=== PATIENT | male | born 2000 | race African-American/Black ===

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

== ENCOUNTER 2022-04-11 18:05 | Emergency (ER) | payer MEDICAID ==
[~2022-04-11] VITALS: Ht 175.3 cm; Wt 70.0 kg
[~2022-04-11 18:05] MED LIST: CEPH500C PO; NAPR500T31 PO
[2022-04-11 18:56] VITALS: BP 131/79
[2022-04-11] MEDS ORDERED: TRAM-300 PO (22:37)
[2022-04-11] MEDS ORDERED: traMADol HCL 50 MG TAB PO ONE (22:45)
== END 2022-04-11 23:34 | disposition home or self-care (01) ==
LOC: ER 18:05 → EDBD 18:05 → ER 23:32
DX: S46.912A Strain of unspecified muscle, fascia and tendon at shoulder and upper arm level, left arm, initial encounter (principal); W22.8XXA Striking against or struck by other objects, initial encounter; Y93.89 Activity, other specified; Y92.89 Other specified places as the place of occurrence of the external cause; Y99.8 Other external cause status
CPT/HCPCS: 73030

== ENCOUNTER 2023-08-25 07:03 | Emergency (ER) | payer MEDICAID ==
[~2023-08-25] VITALS: Ht 172.7 cm; Wt 75.0 kg
[~2023-08-25 07:03] MED LIST changes: +NAPR-746 PO; -NAPR500T31 PO; +TRAM-300 PO
[2023-08-25 07:28] VITALS: BP 135/76; PULSE 120; RESP 18; O2SAT 96
[2023-08-25 07:44] VITALS: TEMP 98.8
[2023-08-25] MEDS: ACETAMINOPHEN 500 MG TAB PO ONE (07:44)
[2023-08-25 08:20] LABS: Rapid Influenza A Negative (Negative); Rapid Influenza B Negative (Negative)
[2023-08-25 08:21] LABS: COVID19 ANTIGEN SOFIA FIA NEGATIVE (NEGATIVE)
[2023-08-25] MEDS ORDERED: AZEL0.058 (08:23)
[2023-08-25] MEDS ORDERED: AZIT-43 PO (08:23)
[2023-08-25] MEDS ORDERED: BENZ100C97 PO (08:23)
== END 2023-08-25 08:26 | disposition home or self-care (01) ==
LOC: ER 07:03
DX: J20.9 Acute bronchitis, unspecified (principal); F12.10 Cannabis abuse, uncomplicated
CPT/HCPCS: 36415; 71046; 87426; 87804

== ENCOUNTER 2024-05-29 04:14 | Emergency (ER) | payer MEDICAID ==
[~2024-05-29] VITALS: Ht 175.3 cm; Wt 77.0 kg
[~2024-05-29 04:14] MED LIST changes: +AZEL0.058; +AZIT-43 PO; +BENZ100C97 PO
[2024-05-29 05:43] LABS: Basophils # (auto) 0 10 ^3/uL (0-0.2); Basophils % (auto) 0.3 % (0.0-2.0); Eosinophils # (auto) 0 10 ^3/uL (0-0.8); Eosinophils % (auto) 0.4 % (0.0-7.0); Hematocrit 49.2 % (41.0-53.0); Hemoglobin 16.6 g/dL (13.5-17.5); Lymphocytes # (auto) 2.3 10 ^3/uL (0.4-5.4); Lymphocytes % (auto) 22.7 % (10.0-50.0); Mean Corpuscular Hemoglobin 33.6 pg (28.0-32.0); Mean Corpuscular Hgb Conc. 33.8 g/dL (32.0-36.0); Mean Corpuscular Volume 99.4 fL (80.0-100.0); Monocytes # (auto) 0.8 10 ^3/uL (0-1.3); Monocytes % (auto) 7.6 % (0.0-12.0); Neutrophils # (auto) 7.1 10 ^3/uL (1.6-8.6); Platelet Count (auto) 374 10^3/uL (140-450); Red Blood Cells 4.95 10^6/uL (4.5-5.90); White Blood Cell 10.2 10^3/uL (4.4-10.8)
--- NOTE | 2024-05-29 05:53 | DVH ---
CHEST RADIOGRAPH Indication: R/o pneumonia Technique: Frontal and lateral view of the chest was obtained Comparison: XY CHEST TWO VIEWS ROUTINE on DOS: 08/25/23 FINDINGS: Lines and Tubes: None Lungs: Mild congestion Pleura: No effusion. No pneumothorax. Cardiomediastinal contours: Unremarkable Bones: Unremarkable IMPRESSION: Possible mild viral pneumonia.
[2024-05-29 05:54] LABS: Alanine Aminotransferase 37 U/L (7-40); Albumin 4.6 g/dL (3.2-4.8); Alkaline Phosphatase 86 U/L (46-116); Anion Gap 10 (5-15); Aspartate Aminotransferase 21 U/L (13-40); BUN/Creatinine Ratio 10.7 (10.0-20.0); Blood Urea Nitrogen 9 mg/dL (9-23); Carbon Dioxide 24 mmol/L (20-31); Glucose 102 mg/dL (74-106); Potassium 4.4 mmol/L (3.5-5.1); Sodium 142 mmol/L (136-145)
[2024-05-29 05:55] LABS: Bilirubin, Total 0.3 mg/dL (0.2-1.0); Total Protein 7.1 g/dL (5.7-8.2)
[2024-05-29 05:59] LABS: Chloride 108 mmol/L (98-107)
[2024-05-29 06:29] VITALS: BP 132/70; PULSE 113; RESP 20; TEMP 98.8; O2SAT 98
--- NOTE | 2024-05-29 06:46 | ED.PDOC ---
History of Present Illness HPI Comments 23-year-old male brought in by EMS presents with a chief complaint of SOB x 2 months with associated dizziness, headache, and back pain. Patient does not have linear train of thought and is endorsing multiple symptoms/complaints at this time. Patient reports that these issues mainly started when he went to group home x 2 months ago and have been consistent since. Patient denies getting worked up for these symptoms in the past. Patient endorses marijuana vaping, and alcohol use. No other symptoms or modifying factors present at this time. Chief Complaint: Headache Time Seen by MD: 06:37 Primary Care Provider: VIVIAN Hernandez Notes: Medications, Allergies Allergies: Coded Allergies: NO KNOWN ALLERGIES (Unverified , 11/15/21) Home Meds Active Scripts Azithromycin (Azithromycin) 250 Mg Tab, 250 MG PO DAILY MDD 500 for 5 Days, #6 TAB 0 Refills 2 TABLETS ORALLY ON DAY ONE, THEN 1 TABLET ORALLY DAILY FOR 4 DAYS Prov:YANI MIRZA 08/25/23 Azelastine HCl (Azelastine HCl) 0.15 % Spr, 0.15 % NA DAILY PRN for 7 Days, #1 SPRAY Prov:YANI MIRZA PAINT TESTER 08/25/23 Benzonatate (Benzonatate) 100 Mg Cap, 1 CAP PO TID PRN, #30 CAP Prov:YANI MIRZA 08/25/23 Tramadol-Acetaminophen (Ultracet) Tab, 1 TAB PO Q6HR PRN for 4 Days, #20 TAB Prov:SIOBHAN BAIG MD 04/11/22 Naproxen (Naproxen) 500 Mg Tab, 500 MG PO BID, #30 TAB Prov:ANTOINETTE FREDERICK 11/15/21 Cephalexin Monohydrate (Cephalexin) 500 Mg Cap, 500 MG PO QID for 7 Days, #28 CAP Prov:ANTOINETTE FREDERICK 11/15/21 Information Source: Patient Mode of Arrival: EMS Severity: Moderate Timing: Months Duration: Since onset Prehospital treatment: None Vital Signs Vital Signs Date Time Temp Pulse Resp B/P (MAP) Pulse Ox O2 Delivery O2 Flow Rate FiO2 05/29/24 06:29 98.8 113 20 132/70 (90) 98 98.8 05/29/24 04:41 Room Air Physical Exam General: Patient is well-appearing, he is ambulating to the exam area, smiling on the cell phone. Awake, alert and oriented. No acute distress. Skin: Skin in warm, dry and intact. Appropriate color for ethnicity. Nailbeds pink with no cyanosis. HEENT: The head is normocephalic and atraumatic. Conjunctivae are clear without exudates or hemorrhage. Sclera is non-icteric. EOM are intact. No signs of nystagmus. Eyelids are normal in appearance without swelling or lesions. Oral mucosa is pink and moist Neck: The neck is supple with normal range of motion. No JVD. Cardiac: Heart rate and rhythm are normal. No murmurs, gallops, or rubs are auscultated. Respiratory: No signs of respiratory distress. Abdominal: Abdomen is soft, non-tender without distention. Extremities: Upper and lower extremities are atraumatic in appearance without deformity or edema. Neurological: The patient is awake, alert and oriented to person, place, and time with normal speech. Speech is clear. There is no facial asymmetry. Sensation in upper and lower extremities intact. Psychiatric: Appropriate mood and affect. Good judgement and insight. No visual or auditory hallucinations. Review of Systems: REVIEW OF SYSTEMS: No fever, no chills, or fatigue HEENT: No sore throat, no earache, no congestion, no neck pain. Cardiac: No chest pain. No palpitations. Lungs: Positive shortness of breath, no cough. GI: No nausea, no vomiting, no diarrhea, no constipation, no abdominal pain : No dysuria, frequency, or urgency. No hematuria. Musculoskeletal: Positive back pain, No joint pain , no joint swelling, no e xtremity edema. Skin: No rash, no itching. Neuro: Positive headache, positive dizziness, no weakness, positive paresthesias bilateral lower extremity Past Medical History PAST MEDICAL HISTORY: Denies Surgical History: Denies all surgeries Family History Family History: Reviewed,noncontributory to illness Social History Smoker: Non-Smoker Alcohol: Heavy Drugs: Marijuana Lives In: Home Was a procedure done? Was a procedure done?: No Differential Dx Considerations may include: Pneumonia, CHF, asthma, viral infection, pericarditis, myocarditis, arrhythmia, spinal epidural abscess, cauda equina, urinary tract infection, electrolyte imbalance, other X-Ray, Labs, Meds, VS Vital Signs Date Time Temp Pulse Resp B/P (MAP) Pulse Ox O2 Delivery O2 Flow Rate FiO2 05/29/24 06:29 98.8 113 20 132/70 (90) 98 98.8 05/29/24 04:54 101 05/29/24 04:41 120 20 100 Room Air 05/29/24 04:41 98.3 120 20 140/74 (96) 100 98.3 05/29/24 04:18 98.3 120 20 140/74 (96) 100 Lab Test 05/29/24 06:10 05/29/24 04:58 Range/Units Troponin I High Sensitivity < 3 L < 3 L </=54 ng/L White Blood Count 10.2 4.4-10.8 10^3/uL Red Blood Count 4.95 4.5-5.90 10^6/uL Hemoglobin 16.6 13.5-17.5 g/dL Hematocrit 49.2 41.0-53.0 % Mean Corpuscular Volume 99.4 80.0-100.0 fL Mean Corpuscular Hemoglobin 33.6 H 28.0-32.0 pg Mean Corpuscular Hemoglobin Concent 33.8 32.0-36.0 g/dL Red Cell Distribution Width 13.0 11.8-14.3 % Platelet Count 374 140-450 10^3/uL Mean Platelet Volume 7.9 6.9-10.8 fL Neutrophils (%) (Auto) 69.0 37.0-80.0 % Lymphocytes (%) (Auto) 22.7 10.0-50.0 % Monocytes (%) (Auto) 7.6 0.0-12.0 % Eosinophils (%) (Auto) 0.4 0.0-7.0 % Basophils (%) (Auto) 0.3 0.0-2.0 % Neutrophils # (Auto) 7.1 1.6-8.6 10 ^3/uL Lymphocytes # (Auto) 2.3 0.4-5.4 10 ^3/uL Monocytes # (Auto) 0.8 0-1.3 10 ^3/uL Eosinophils # (Auto) 0 0-0.8 10 ^3/uL Basophils # (Auto) 0 0-0.2 10 ^3/uL Nucleated Red Blood Cells 0.0 % D-Dimer, Quantitative 0.27 0.0-0.49 mg/L FEU Sodium Level 142 136-145 mmol/L Potassium Level 4.4 3.5-5.1 mmol/L Chloride Level 108 H 98-107 mmol/L Carbon Dioxide Level 24 20-31 mmol/L Anion Gap 10 5-15 Blood Urea Nitrogen 9 9-23 mg/dL Creatinine 0.84 0.700-1.30 mg/dL Glomerular Filtration Rate Calc 127 >90 mL/min BUN/Creatinine Ratio 10.7 10.0-20.0 Serum Glucose 102 74-106 mg/dL Calcium Level 11.0 H 8.7-10.4 mg/dL Magnesium Level 2.1 1.6-2.6 mg/dL Total Bilirubin 0.3 0.2-1.0 mg/dL Aspartate Amino Transferase (AST) 21 13-40 U/L Alanine Aminotransferase (ALT) 37 7-40 U/L Alkaline Phosphatase 86 46-116 U/L B-Type Natriuretic Peptide 1.38 0-100 pg/mL Total Protein 7.1 5.7-8.2 g/dL Albumin 4.6 3.2-4.8 g/dL Time of 1ST Reevaluation: 07:07 Reevaluation 1ST: Unchanged Patient Education/Counseling: Diagnosis, Treatment, Prognosis Family Education/Counseling: No Family Present Departure 1 Departure Time of Disposition: 08:06 Impression: Primary Impression: Headache Additional Impressions: Back pain Paresthesia of both feet Shortness of breath Disposition: 01 HOME / SELF CARE / HOMELESS Condition: Stable Additional Instructions: ED DISCHARGE INSTRUCTIONS Instructions: Please read all instructions provided in this packet carefully. Although you have been discharged from the Emergency Department, this does not mean that you have a "clean bill of health". No definitive diagnosis for your symptoms has been made today. It is possible that you are in the process of developing a serious illness. This is why you must return to the ED without fail if any new or worsening symptoms (especially if your symptoms include chest pain, trouble breathing, abdominal pain, fever, headache, confusion, trouble see ing, or trouble walking) It is also very important that you see a primary care doctor within the next 3-5 days to follow up. If you are unable to get an appointment, return to the ED for re-evaluation.\\ SHORTNESS OF BREATH EDUCATION Shortness of breath has many causes. Sometimes conditions such as anxiety can lead to shortness of breath. Some people get mild shortness of breath when they exercise. Trouble breathing also can be a symptom of a serious problem, such as asthma, lung disease, emphysema, heart problems, and pneumonia. If your shortness of breath continues, you may need tests and treatment. Watch for any changes in your breathing and other symptoms. Follow-up care is a stratton part of your treatment and safety. Be sure to make and go to all appointments, and call your doctor if you are having problems. It's also a good idea to know your test results and keep a list of the medicines you take. How can you care for yourself at home? Do not smoke or allow others to smoke around you. If you need help quitting, talk to your doctor about stop-smoking programs and medicines. These can increase your chances of quitting for good. Get plenty of rest and sleep. Take your medicines exactly as prescribed. Call your doctor if you think you are having a problem with your medicine. Find healthy ways to deal with stress. Exercise daily. Get plenty of sleep. Eat regularly and well. When should you call for help? Call 911 anytime you think you may need emergency care. For example, call if: You have severe shortness of breath. You have symptoms of a heart attack. These may include: Chest pain or pressure, or a strange feeling in the chest. Sweating. Shortness of breath. Nausea or vomiting. Pain, pressure, or a strange feeling in the back, neck, jaw, or upper belly or in one or both shoulders or arms. Lightheadedness or sudden weakness. A fast or irregular heartbeat. After you call 911, the repair table operator may tell you to chew 1 adult-strength or 2 to 4 low-dose aspirin. Wait for an ambulance. Do not try to drive yourself. Call your doctor now or seek immediate medical care if: Your shortness of breath gets worse or you start to wheeze. Wheezing is a high- pitched sound when you breathe. You wake up at night out of breath or have to prop your head up on several pillows to breathe. You are short of breath after only light activity or while at rest. Watch closely for changes in your health, and be sure to contact your doctor if: You do not get better over the next 1 to 2 days. Credits for Shortness of Breath: Care Instructions Current as of: December 15, 2023 Author: [employer] Staff e-Prescriptions Albuterol Sulfate (CONSTANCE ARRIOLAI) 90 Mcg Ih 90 MCG IN QIDPRN PRN for 5 Days, #1 INH Prov: BERYL SUN MD 05/29/24 Comments 23-year-old male with a constellation of multiple complaints including headache, double vision, low back pain, shortness of breath, numbness and tingling of the bilateral lower extremities. He is denying any significant past medical history. No abnormal findings on his physical exam. No focal neurologic deficit. Chest x-ray shows possible viral pneumonia. Patient is afebrile, othe r lab and imaging results not patient will. We will discharge with trial of albuterol. Patient is advised importance of prompt follow up with primary care provider for further evaluation of his symptoms and he is advised to return to the emergency department with any new, worsening or concerning symptoms. Critical Care Note Critical Care Time?: No Stability Stability form required: No I personally scribed for BERYL SUN MD ([email or web address]) on 05/29/24 at 06:46. Electronically submitted by Yoan Wilkinson ([email or web address]). BERYL SUN MD May 29, 2024 06:46
--- NOTE | 2024-05-29 07:02 | ECG ---
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
--- NOTE | 2024-05-29 07:08 | DVH ---
CLINICAL INDICATION: 23 years old, Male; low back pain b/l le paresthesias. TECHNIQUE: CT of the lumbar spine was performed without intravenous contrast. Sagittal and coronal re formatted images are provided. All CT scans at this medical facility are performed using dose modula tion techniques as appropriate to a performed exam including the following: Automated exposure contro l was utilized; adjustment of the MA and/or KV according to patient size; and use of iterative recons truction technique. COMPARISON: None CT Dose: CTDI volume is 24.59 mGy. Dose-length product is 857.69 mGy*cm FINDINGS: The alignment and curvature of the lumbar spine are preserved. The vertebral bodies are normal in hei ght. The intervertebral disc spaces are maintained. There is no evidence of spinal canal or neural fo raminal stenosis. The prevertebral soft tissues are unremarkable. Paraspinal muscles are also within normal limits. IMPRESSION: 1. No acute fracture or malalignment in the lumbar spine.
[2024-05-29] MEDS ORDERED: ALBUAER3 IN (08:12)
== END 2024-05-29 08:33 | disposition home or self-care (01) ==
LOC: ER 04:14 → EDBD 04:14 → ER 08:32
DX: R51.9 Headache, unspecified (principal); M54.9 Dorsalgia, unspecified; R06.02 Shortness of breath; R20.2 Paresthesia of skin; Z79.899 Other long term (current) drug therapy
CPT/HCPCS: 36415; 71046; 72131; 80053; 83735; 83880; 84484; 85025; 85379; 93005

== ENCOUNTER 2024-12-03 06:39 | Emergency (ER) | payer MEDICAID ==
[~2024-12-03] VITALS: Ht 172.7 cm; Wt 81.7 kg
[~2024-12-03 06:39] MED LIST changes: +ALBUAER3 IN
--- NOTE | 2024-12-03 06:53 | ED.PDOC ---
SOB-HPI HPI Comments 24 year old male presents to the ED via EMS with a chief complaint of shortness of breath onset 6 months. Patient states he has been experiencing shortness of breath for the past 6 months, has difficulty taking deep breaths,has not followed up with PCP. Per EMS, patient's O2 was 95% on RA, admits to drinking ETOH last night. Denies PMHx as well as cough, congestion, chest pain, dizziness, fevers, chills, nausea, vomiting, diarrhea, abdominal pain, back pain. No other symptoms or modifying factors present at this time. Chief Complaint: Shortness of Breath Time Seen by MD: 06:45 Primary Care Provider: VIVIAN Hernandez notes: Medications, Allergies Information Source: Patient, Emergency Med Personnel Mode of Arrival: EMS Severity: Moderate Timing: Months Duration: Since onset Context: At Rest PE Risk Factors: None History of: None Prehospital treatment: None Associated Signs and Symptoms: None Past Medical History PAST MEDICAL HISTORY: Denies Surgical History: Denies all surgeries Family History Family History: Reviewed,noncontributory to illness Social History Smoker: Other Alcohol: Heavy Drugs: Marijuana Lives In: Home Constitutional: denies: chills, diaphoresis, fatigue, fever, malaise, sweats, weakness, others EENTM: denies: blurred vision, double vision, ear bleeding, ear discharge, ear drainage, ear pain, ear ringing, eye pain, eye redness, hearing loss, mouth pain, mouth swelling, nasal discharge, nose bleeding, nose congestion, nose pain, photophobia, tearing, throat pain, throat swelling, voice changes, others Respiratory: reports: shortness of breath; denies: cough, hemoptysis, orthopnea, SOB at rest, SOB with excertion, stridor, wheezing, others Cardiovascular: denies: chest pain, dizzy spells, diaphoresis, Dyspnea on exertion, edema, irregular heart beat, left arm pain, lightheadedness, palpitations, PND, syncope, others Gastrointestinal: denies: abdomen distended, abdominal pain, blood streaked bowels, constipated, diarrhea, dysphagia, difficulty swallowing, hematemesis, melena, nausea, poor appetite, poor fluid intake, rectal bleeding, rectal pain, vomiting, others Genitourinary: denies: burning, dysuria, flank pain, frequency, hematuria, incontinence, penile discharge, penile sore, pain, testicle pain, testicle swelling, urgency, others Neurological: denies: dizziness, fainting, headache, left sided numbness, left sided weakness, numbness, paresthesia, pre-existing deficit, right sided numbness, right sided weakness, seizure, speech problems, tingling, tremors, weakness, others Musculoskeletal: denies: back pain, gout, joint pain, joint swelling, muscle pain, muscle stiffness, neck pain, others Integumetry: denies: bruises, change in color, change in hair/nails, dryness, laceration, lesions, lumps, rash, wounds, others Allergic/Immunocompromised: denies: Difficulty Healing, Frequent Infections, Hives, Itching, others Hematologic/Lymphatic: denies: anemia, blood clots, easy bleeding, easy bruising, swollen glands, others Endocrine: denies: excessive hunger, excessive sweating, excessive thirst, excessive urination, flushing, intolerance to cold, intolerance to heat, unexplained weight gain, unexplained weight loss, others Psychiatric: denies: anxiety, bipolar disorder, depression, hopeless, panic disorder, schizophrenia, sleepless, suicidal, others All Other Systems: Reviewed and Negative Physical Exam General Appearance: Moderate Distress, Normal HEENT: Normal ENT Inspection, Pharynx Normal, TMs Normal Neck: Full Range of Motion, Non-Tender, Normal, Normal Inspection Respiratory: Chest Non-Tender, Lungs Clear, No Accessory Muscle Use, No Respiratory Distress, Normal Breath Sounds Cardiovascular: No Edema, No JVD, No Murmur, No Gallop, Normal Peripheral Pulses, Regular Rate/Rhythm Breast Exam: Deferred Gastrointestinal: No Organomegaly, Non Tender, No Pulsatile Mass, Normal Bowel Sounds, Soft Genitalia: Deferred Pelvic: Deferred Rectal: Deferred Extremities: No calf tenderness, Normal capillary refill, Normal inspection, Normal range of motion, Non-tender, No pedal edema Musculoskeletal : Apperance: Normal Neurologic: Alert, commissioner conservation of resources II-XII nml as Tested, No Motor Deficits, Normal Affect, Normal Mood, No Sensory Deficits Cerebellar Function: Normal Reflexes: Normal Skin: Dry, Normal Color, Warm Peripheral Pulses: 3+ Radial (R), 3+ Radial (L) Lymphatic: No Adenopathy Was a procedure done? Was a procedure done?: No Differential Dx Differential Diagnosis: Anxiety, Asthma, Bronchitis, CHF, COPD X-Ray, Labs, Meds, VS Vital Signs Date Time Temp Pulse Resp B/P (MAP) Pulse Ox O2 Delivery O2 Flow Rate FiO2 12/03/24 06:41 98.0 107 20 120/74 (89) 94 98.0 Patient alert. No sign of distress. Continues to vape. Vitals stable. No leg swelling. Heart rate clinically is within normal limits. Saturation normal. No discoloration. No using accessory muscles. No distress. Counseled patient on effects of vaping. X-ray does show mild inflammation. Possible pneumonitis. Was given prescription of prednisolone Levaquin antibiotic. Explained to the patient. Was told to follow up with his primary care physician. Was told to come back if is any problem. [place] [id number] Ph: [phone] DIAGNOSTIC IMAGING Diagnostic Imaging Report : [id number] Signed PATIENT: PETER SALINASACCT: [id number] UNIT: [id number] : 2000 LOC: ER ROOM / BED: / AGE / SEX: 24 / M ADM STATUS: REG ER SERVICE 0650 ORDERING PHYSICIAN: MALIA GAVIN MD PROCEDURE(s): CXRP - CHEST PORTABLE REASON: sob ORDER NUMBER(s): [id number], ACCESSION NUMBER(s): [id number] CHEST RADIOGRAPH Indication: sob Technique: Single frontal view of the chest was obtained Comparison: 05/29/24 FINDINGS: Lines and Tubes: None Lungs: No focal consolidation. Pleura: No effusion. No pneumothorax. Cardiomediastinal contours: Unremarkable Bones: No acute osseous abnormality. IMPRESSION: 1. No acute cardiopulmonary disease. ATED BY: ELLIE GEE MD DICTATED DATE/TIME: 12/03/24 075 SIGNED BY: ELLIE GEE MD SIGNED DATE/TIME: 12/03/24 075 CC: Time of 1ST Reevaluation: 07:15 Reevaluation 1ST: Unchanged Patient Education/Counseling: Diagnosis, Treatment, Prognosis Family Education/Counseling: No Family Present SEPSIS Sepsis Screen Date sepsis recognized/suspect: Dec 03, 2024 Time Sepsis recognized/suspect: 0643 Recent Procedure: No On Antibiotic Therapy: No Respiratory Rate >20: No Heart Rate >90: Yes Temp<36 C (96.8 F) or >38.3 C: No SBP <90 or MAP <65 mmHG: No New Acute Mental Status Change: No Is the patient on CPAP, BIPAP,: No Physician Orders Chest Portable (12/03/24 06:50) Vital Signs Date Time Temp Pulse Resp B/P (MAP) Pulse Ox O2 Delivery O2 Flow Rate FiO2 12/03/24 06:41 98.0 107 20 120/74 (89) 94 98.0 Departure 1 Departure Time of Disposition: 07:34 Impression: Primary Impression: Pneumonitis Disposition: HOME / SELF CARE / HOMELESS Condition: Good e-Prescriptions Levofloxacin Hemihydrate (LEVOFLOXACIN) 500 Mg Tab 500 MG PO DAILY for 7 Days, #7 MG Prov: MALIA GAVIN MD 12/03/24 Prednisone (Prednisone) 10 Mg Tab 10 MG PO DAILY for 5 Days, #5 MG Prov: MALIA GAVIN MD 12/03/24 Discharged With: Self Critical Care Note Critical Care Time?: No Stability Stability form required: No Heart Score Heart Score: Heart Score Response (Comments) Value History N/A 0 EKG N/A 0 Age N/A 0 Risk Factors N/A 0 Troponin N/A 0 Total 0 I personally scribed for MALIA GAVIN MD ([email or web address]) on 12/03/24 at 06:53. Electronically submitted by Corinne Treviño ([email or web address]). I personally scribed for MALIA GAVIN MD ([email or web address]) on 12/03/24 at 07:58. Electronically submitted by Corinne Treviño ([email or web address]). MALIA GAVIN MD Dec 03, 2024 06:53
[2024-12-03] MEDS ORDERED: PRED10TA PO (07:35)
[2024-12-03] MEDS ORDERED: LEVO500T91 PO (07:35)
--- NOTE | 2024-12-03 07:56 | DVH ---
CHEST RADIOGRAPH Indication: sob Technique: Single frontal view of the chest was obtained Comparison: 05/29/24 FINDINGS: Lines and Tubes: None Lungs: No focal consolidation. Pleura: No effusion. No pneumothorax. Cardiomediastinal contours: Unremarkable Bones: No acute osseous abnormality. IMPRESSION: 1. No acute cardiopulmonary disease.
[2024-12-03 08:34] VITALS: BP 140/75; PULSE 119; RESP 20; TEMP 98.9; O2SAT 93
== END 2024-12-03 08:41 | disposition home or self-care (01) ==
LOC: ER 06:39 → EDUNIT# 06:39 → EDBD 06:39 → ER 08:40
DX: J98.4 Other disorders of lung (principal); F12.90 Cannabis use, unspecified, uncomplicated; F17.200 Nicotine dependence, unspecified, uncomplicated; F10.10 Alcohol abuse, uncomplicated; Y90.9 Presence of alcohol in blood, level not specified
CPT/HCPCS: 71045